=== PATIENT | female | born 1990 | race American Indian/Alaskan Native ===

== ENCOUNTER 2022-05-01 02:26 | Emergency (ER) | payer SELFPAY ==
[2022-05-01 04:27] LABS: Basophils # (Auto) 0.1 K/mm3 (0.0-0.1); Basophils % (Auto) 0.6 % (0.0-1.8); Eosinophils # (Auto) 0.2 K/mm3 (0.0-0.4); Eosinophils % (Auto) 1.6 % (0.0-4.3); Hematocrit 38.9 % (30.3-42.9); Hemoglobin 12.9 gm/dl (10.1-14.3); Lymphocytes % (Auto) 23.5 % (13.4-35.0); Mean Corpuscular HGB Conc 33 % (30-34); Mean Corpuscular Volume 83 fl (79-97); Monocytes # (Auto) 0.9 K/mm3 (0.0-0.8); Monocytes % (Auto) 7.1 % (0.0-7.3); Platelet Count 325 K/mm3 (140-440); Red Blood Count 4.67 M/mm3 (3.65-5.03); Red Cell Distribution Width 13.4 % (13.2-15.2)
[2022-05-01 06:27] LABS: Bilirubin,Urine Negative (Negative); Blood,Urine Large (Negative); Color,Urine Red (Yellow); RBC,Urine > 182.0 /HPF (0.0-6.0); WBC,Urine > 182.0 /HPF (0.0-6.0)
[2022-05-01] MEDS ORDERED: LIDOCAINE-MPF (1%) 10 MG/1 ML VIAL 5 ML INFILTRATI ONE (09:30)
--- NOTE | 2022-05-01 09:55 | Emergency Department Report ---
ED Female HPI - General Chief complaint: Vaginal Bleeding Stated complaint: VAGINAL BLEEDING Time Seen by Provider: 05/01/22 09:40 Source: patient Mode of arrival: Ambulatory Limitations: No Limitations - History of Present Illness Initial comments: Ms. Cruz is a pleasant 31-year-old female that comes to the ER with a heavy menses. She states she is been bleeding for 2 weeks. She has an implant in her left arm. She has not seen her [facility]. She has no chest pain or shortness of breath. Her vital signs are normal. No hypotension or tachycardia. MD Complaint: vaginal bleeding -: Gradual, days(s) Improves with: none Worsens with: none Are you Now?: No Associated Symptoms: denies other symptoms, vaginal bleeding. denies: vaginal discharge, abdominal pain, nausea/vomiting, fever/chills, headaches, loss of appetite, dysuria, hematuria, rash, seizure, shortness of breath, syncope, weakness - Related Data Sexually active: Yes Previous Rx's Medication Instructions Recorded Last Taken Type Sulfamethoxazole/Trimethoprim 1 each PO BID #10 tablet 05/01/22 Unknown Rx [Bactrim DS TAB] Allergies Allergy/AdvReac Type Severity Reaction Status Date / Time No Known Allergies Allergy Verified 05/01/22 03:21 ED Review of Systems ROS: Stated complaint: VAGINAL BLEEDING Other details as noted in HPI Comment: All other systems reviewed and negative ED Past Medical Hx - Past Medical History Previous Medical History?: No - Surgical History Past Surgical History?: No - Family History Family history: no significant - Social History Smoking Status: Never Smoker Substance Use Type: Alcohol - Medications Home Medications: Home Medications Medication Instructions Recorded Confirmed Last Taken Type Sulfamethoxazole/Trimethoprim 1 each PO BID #10 tablet 05/01/22 Unknown Rx [Bactrim DS TAB] ED Physical Exam - General Limitations: No Limitations General appearance: alert, in no apparent distress - Head Head exam: Present: atraumatic, normocephalic - Eye Eye exam: Present: normal appearance - ENT ENT exam: Present: mucous membranes moist - Neck Neck exam: Present: normal inspection - Respiratory Respiratory exam: Present: normal lung sounds bilaterally. Absent: respiratory distress - Cardiovascular Cardiovascular Exam: Present: regular rate, normal rhythm. Absent: systolic murmur, diastolic murmur, rubs, gallop - GI/Abdominal GI/Abdominal exam: Present: soft, normal bowel sounds - Extremities Exam Extremities exam: Present: normal inspection - Back Exam Back exam: Present: normal inspection - Neurological Exam Neurological exam: Present: alert, oriented X3 - Psychiatric Psychiatric exam: Present: normal affect, normal mood - Skin Skin exam: Present: warm, dry, intact, normal color. Absent: rash ED Course Vital Signs 05/01/22 05/01/22 03:04 10:50 Temperature 99.5 F 98.5 F Pulse Rate 88 82 Respiratory 18 16 Rate Blood Pressure 126/70 Blood Pressure 114/80 [Right] O2 Sat by Pulse 96 100 Oximetry ED Medical Decision Making - Lab Data Result diagrams: 05/01/22 03:33 - Medical Decision Making Labs 05/01/22 05/01/22 05/01/22 03:33 03:33 03:33 WBC 12.7 H RBC 4.67 Hgb 12.9 Hct 38.9 MCV 83 MCH 28 MCHC 33 RDW 13.4 Plt Count 325 Lymph % (Auto) 23.5 [place] % (Auto) 7.1 Eos % (Auto) 1.6 Baso % (Auto) 0.6 Lymph # (Auto) 3.0 [place] # (Auto) 0.9 H Eos # (Auto) 0.2 Baso # (Auto) 0.1 Seg Neutrophils % 67.2 Seg Neutrophils # 8.5 H HCG, Qual Negative HCG, Quant < 2 Urine Color Urine Turbidity Urine pH Ur Specific [place] Urine Protein Urine Glucose (UA) Urine Ketones Urine Blood Urine Nitrite Urine Bilirubin Urine Urobilinogen Ur Leukocyte Esterase Urine WBC (Auto) Urine RBC (Auto) Blood Type 05/01/22 05/01/22 03:33 Unknown WBC RBC Hgb Hct MCV MCH MCHC RDW Plt Count Lymph % (Auto) [place] % (Auto) Eos % (Auto) Baso % (Auto) Lymph # (Auto) [place] # (Auto) Eos # (Auto) Baso # (Auto) Seg Neutrophils % Seg Neutrophils # HCG, Qual HCG, Quant Urine Color Red Urine Turbidity Hazy Urine pH 5.0 Ur Specific [place] 1.015 Urine Protein 30 mg/dl Urine Glucose (UA) Negative Urine Ketones Negative Urine Blood Large A Urine Nitrite Negative Urine Bilirubin Negative Urine Urobilinogen 2.0 Ur Leukocyte Esterase Small Urine WBC (Auto) > 182.0 H Urine RBC (Auto) > 182.0 Blood Type O POSITIVE Vital Signs 05/01/22 03:04 Temperature 99.5 F Pulse Rate 88 Respiratory 18 Rate Blood Pressure 126/70 O2 Sat by Pulse 96 Oximetry Labs noted. Hemoglobin stable. negative. Patient is requesting medications for stopping her menses. I told her that in the emergency room with a normal hemoglobin we would not do that. Have referred her to [facility]. She does have a UTI and have treated her with Rocephin IM. She is being discharged home on antibiotics. On discharge exam patient is ambulatory, not ill nontoxic. She has no abdominal pain. Her abdominal exam is benign. She has no CVA tenderness. She has no fever and she is taking p.o. Patient being discharged home with discharge plan of care including diet, activity, medications and follow-up. She verbalizes understanding of plan of care. - Differential Diagnosis Heavy menses rule out Critical care attestation.: If time is entered above; I have spent that time in minutes in the direct care of this critically ill patient, excluding procedure time. ED Disposition Clinical Impression: DUB (dysfunctional uterine bleeding) UTI (urinary tract infection) Qualifiers: Urinary tract infection type: site unspecified Disposition: HOME / SELF CARE / HOMELESS Is pt being admited?: No Does the pt Need Aspirin: No Condition: Stable Instructions: Menorrhagia, [id number] Additional Instructions: FOLLOW UP WITH OBGYN WE DISCUSSED MOTRIN OR TYLENOL FOR PAIN MED ORDERED TODAY UNTIL GONE THEN FOLLOW UP WITH MD TO BE SURE UTI IS GONE DRINK A LOT OFWATER Prescriptions: Sulfamethoxazole/Trimethoprim [Bactrim DS TAB] 1 each PO BID #10 tablet Referrals: JAMA CHOUDHURY MD [Staff Physician] - 3-5 Days Forms: Work/School Release Form(ED) Time of Disposition: 09:57
[2022-05-01] MEDS ORDERED: ACETAMINOPHEN 500 MG TAB PO ONE (09:58)
[2022-05-01 11:07] VITALS: BP 114/80
== END 2022-05-01 11:11 | disposition home or self-care (01) ==
LOC: ED 02:26
DX: N93.8 Other specified abnormal uterine and vaginal bleeding (principal); N39.0 Urinary tract infection, site not specified; F10.20 Alcohol dependence, uncomplicated
CPT/HCPCS: 36415; 81001; 84702; 84703; 85025; 86900; 86901; 96372; 99283; J0696; J3490